=== PATIENT | female | born 1975 | race Two or more races ===

== ENCOUNTER → 2021-07-24 | Outpatient (CLI) | payer OTHER | LOC: M WHC 12:48 | PROVIDERS: ATTEND Family Medicine | DX: Z12.31 Encounter for screening mammogram for malignant neoplasm of breast (principal) ==

== ENCOUNTER 2022-05-08 12:10 | Inpatient (IN) | payer OTHER ==
[~2022-05-08] VITALS: Ht 167.6 cm; Wt 77.7 kg
[2022-05-08] MEDS ORDERED: NS 1,000 ML IV ONE (13:25)
[2022-05-08 14:31] LABS: BASO % 0.3 % (0.0-1.0); EOS % 0.2 % (0.0-3.0); HEMATOCRIT 37.4 % (36.0-47.0); HEMOGLOBIN 11.9 g/dl (12.0-15.5); LYMPH # 1.8 10^3/uL (1.5-5.0); MEAN CORPUSCULAR HEMOGLOBIN 30.3 pg (27.0-33.0); MEAN CORPUSCULAR HGB CONC 31.8 g/dl (32.0-36.5); MEAN CORPUSCULAR VOLUME 95.2 fl (80.0-96.0); MONO # 0.8 10^3/uL (0.0-0.8); NEUTROPHILS % 75.1 % (36.0-66.0); PLATELET COUNT, AUTOMATED 263 10^3/uL (150-450); RED BLOOD COUNT 3.93 10^6/uL (4.00-5.40); WHITE BLOOD COUNT 10.7 10^3/uL (4.0-10.0)
[2022-05-08 15:11] LABS: ALBUMIN 3.4 GM/DL (3.2-5.2); ALT/SGPT 26 U/L (12-78); BILIRUBIN,TOTAL 0.8 MG/DL (0.2-1.0); BLOOD UREA NITROGEN 10 MG/DL (7-18); CALCIUM LEVEL 9.2 MG/DL (8.5-10.1); CARBON DIOXIDE LEVEL 26 MEQ/L (21-32); CHLORIDE LEVEL 105 MEQ/L (98-107); CREATININE FOR GFR 0.63 MG/DL (0.55-1.30); GLOMERULAR FILTRATION RATE > 60.0 (>58); GLUCOSE, FASTING 98 MG/DL (70-100); POTASSIUM SERUM 3.5 MEQ/L (3.5-5.1); SODIUM LEVEL 137 MEQ/L (136-145); TOTAL PROTEIN 7.7 GM/DL (6.4-8.2)
[2022-05-08] MEDS ORDERED: ISOVUE-370 76% 100ML VIAL As Ordered ONE (15:34)
[2022-05-08] MEDS ORDERED: PIPERACILLIN/TAZOBACTAM SOD 3.375 GM in D5W MINI-BAG PLUS 50 ML IV ONE (16:10)
[2022-05-08] MEDS ORDERED: LR 1,000 ML IV SCH ×2 (16:30→20:55)
[2022-05-08] MEDS ORDERED: BUPIVACAINE/EPIN 0.25% 30 ML VIAL As Ordered ONE (17:19)
[2022-05-08] MEDS ORDERED: VITA100066 PO (18:43)
[2022-05-08] MEDS ORDERED: HOME MED LIST COMPLETE! XX SCH (18:45)
[2022-05-08] MEDS ORDERED: propofoL 200 MG/20 ML VIAL As Ordered ONE (19:20)
[2022-05-08] MEDS ORDERED: MIDAZOLAM INJ 2MG/2ML VIAL (J2250 PER 1MG) As Ordered ONE (19:20)
[2022-05-08] MEDS ORDERED: ROCURONIUM BROMIDE 50 MG/5 ML VIAL As Ordered ONE (19:20)
[2022-05-08] MEDS ORDERED: SUGAMMADEX SODIUM 500 MG/5 ML VIAL (BRIDION) As Ordered ONE (19:20)
[2022-05-08] MEDS ORDERED: ONDANSETRON 4MG 2ML VIAL As Ordered ONE (19:20)
[2022-05-08] MEDS ORDERED: dexameTHASONE 4 MG/ML 1ML VIAL (J1100 PER 1MG) As Ordered ONE (19:20)
[2022-05-08] MEDS ORDERED: fentaNYL 100 MCG/2 ML INJECTION As Ordered ONE (19:21)
[2022-05-08] MEDS ORDERED: LIDOCAINE 2% 100MG/5ML SDV (FOR ANES.) As Ordered ONE (19:23)
[2022-05-08] MEDS ORDERED: KETOROLAC 60MG 2ML VIAL As Ordered ONE (20:14)
[2022-05-08] MEDS ORDERED: fentaNYL 100 MCG/2 ML INJECTION IV PRN (20:55)
[2022-05-08] MEDS ORDERED: MORPHINE 2 MG/ML 1ML VIAL IV PRN ×3 (20:55→21:25)
[2022-05-08] MEDS ORDERED: oxyCODONE 5MG TAB PO PRN (20:55)
[2022-05-08] MEDS ORDERED: ONDANSETRON 4MG 2ML VIAL IV PRN (20:55)
[2022-05-08] MEDS ORDERED: ACETAMINOPHEN TAB 650MG DOSE (2X325MG) PO PRN (21:25)
[2022-05-08 22:00] VITALS: BP 138/75
[2022-05-08 22:30] VITALS: BP 119/62
[2022-05-08] MEDS: PIPERACILLIN/TAZOBACTAM SOD 3.375 GM in D5W MINI-BAG PLUS 50 ML IV SCH (22:54)
[2022-05-08] MEDS: NS 1,000 ML IV SCH (22:54)
[2022-05-08 23:03] VITALS: BP 118/66
[2022-05-09] VITALS (7 sets, daily range): BP systolic 120–130; BP diastolic 58–66
[2022-05-09] MEDS: KETOROLAC 30 MG/ML 1ML VIAL IV SCH ×2 (02:24→08:10)
[2022-05-09] MEDS: PIPERACILLIN/TAZOBACTAM SOD 3.375 GM in D5W MINI-BAG PLUS 50 ML IV SCH ×2 (05:30→10:37)
[2022-05-09] MEDS ORDERED: AUGM500T34 PO (09:10)
[2022-05-09] MEDS: NS 1,000 ML IV SCH (09:21)
== END 2022-05-09 14:01 | disposition home or self-care (01) | DRG 343 ==
LOC: M ED 12:10 → M SDC 16:55 → UNDOADMIN 21:21 → M ED INP 21:21 → M PED 22:00
PROVIDERS: ADMIT Surgery; ATTEND Surgery
PROC: 0DTJ4ZZ Resection of Appendix, Percutaneous Endoscopic Approach (ICD-10-PCS; principal; 2022-05-08 18:30)
DX: K35.80 Unspecified acute appendicitis (principal)

== ENCOUNTER → 2022-08-06 | Outpatient (CLI) | payer OTHER ==
[~2022-08-06] MED LIST: AUGM500T34 PO; VITA100066 PO
== END ==
LOC: M WHC 09:37
PROVIDERS: ATTEND Nurse Practitioner Primary Care
DX: Z12.31 Encounter for screening mammogram for malignant neoplasm of breast (principal)

== ENCOUNTER 2022-08-22 09:57 | Day surgery (SDC) | payer OTHER ==
[~2022-08-22] VITALS: Ht 167.6 cm; Wt 75.7 kg
[~2022-08-22 09:57] MED LIST changes: +NS 1,000 ML IV ONE
[2022-08-22] MEDS ORDERED: propofoL 200 MG/20 ML VIAL As Ordered ONE ×2 (11:26→11:34)
[2022-08-22] MEDS ORDERED: LIDOCAINE 2% 100MG/5ML SDV (FOR ANES.) As Ordered ONE (11:27)
[2022-08-22 12:10] VITALS: BP 125/75
== END 2022-08-22 12:17 | disposition home or self-care (01) ==
LOC: M OPP 09:57
PROVIDERS: ATTEND Internal Medicine Gastroenterology
DX: K63.5 Polyp of colon (principal); K64.0 First degree hemorrhoids; R19.5 Other fecal abnormalities

== ENCOUNTER → 2023-09-02 | Outpatient (CLI) | payer OTHER ==
[~2023-09-02] MED LIST changes: -NS 1,000 ML IV ONE
== END ==
LOC: M WHC 10:09
PROVIDERS: ATTEND Nurse Practitioner Primary Care
DX: Z12.31 Encounter for screening mammogram for malignant neoplasm of breast (principal)

== ENCOUNTER → 2024-09-21 | Outpatient (CLI) | payer OTHER | LOC: M WHC 07:30 | PROVIDERS: ATTEND Nurse Practitioner Primary Care | DX: Z12.31 Encounter for screening mammogram for malignant neoplasm of breast (principal); N63.22 Unspecified lump in the left breast, upper inner quadrant ==

== ENCOUNTER → 2024-09-29 | Outpatient (CLI) | payer OTHER | LOC: M WHC 09:52 | PROVIDERS: ATTEND Nurse Practitioner Primary Care | DX: R92.2 Inconclusive mammogram (principal); N60.12 Diffuse cystic mastopathy of left breast | CPT/HCPCS: 76642; 77065; G0279 ==